=== PATIENT | male | born 1955 | race Caucasian/White ===

== ENCOUNTER 2024-12-31 15:38 | Inpatient (IN) ==
[2024-12-31] MEDS: fentaNYL 100 MCG/2 ML VIAL IV ONE (16:38)
[2024-12-31 16:56] LABS: INR 1.0 (0.9-1.1); Prothrombin Time 14.1 sec (11.9-14.5)
[2024-12-31 16:57] LABS: Basophils # (Auto) 0.05 K/mcL (0.00-0.30); Basophils % (Auto) 0.6 % (0.0-2.0); Eosinophils # (Auto) 0.94 K/mcL (0.00-0.70); Eosinophils % (Auto) 10.8 % (0.0-7.0); Hematocrit 33.8 % (40.1-51.0); Hemoglobin 11.1 g/dL (13.7-17.5); Lymphocytes # (Auto) 2.16 K/mcL (1.50-4.80); Lymphocytes % (Auto) 24.8 % (15.5-49.0); Mean Corpuscular HGB Conc 32.8 g/dL (31.0-36.0); Monocytes # (Auto) 1.08 K/mcL (0.10-0.90); Monocytes % (Auto) 12.4 % (1.0-12.0); Neutrophils % (Auto) 51.2 % (38.0-78.0); Platelet Count 216 K/mcL (140-440); RBC 3.39 M/mcL (4.63-6.08); WBC 8.7 K/mcL (4.5-11.0)
[2024-12-31 16:58] LABS: ALT/SGPT 18 U/L (<40); AST/SGOT 22 U/L (<40); Albumin 3.9 gm/dL (3.2-5.2); Albumin/Globulin Ratio 1.4 (1.0-2.3); Alkaline Phosphatase 52 U/L (39-117); Anion Gap 12.0 (8.0-16.0); Bilirubin,Total 0.3 mg/dL (0.1-1.0); Blood Urea Nitrogen 42 mg/dL (8-23); Calcium 8.7 mg/dL (8.6-10.4); Carbon Dioxide 26 mmol/L (22-30); Chloride 100 mmol/L (96-108); Globulin 2.8 gm/dL (2.2-3.7); Glucose 127 mg/dL (70-105); Potassium 4.2 mmol/L (3.3-5.1); Sodium 138 mmol/L (133-145)
[2024-12-31 17:06] LABS: Bilirubin,Urine NEGATIVE (Negative); Color,Urine YELLOW; Glucose,Urine (UA) 250 mg/dL (Negative); Ketones,Urine NEGATIVE (Negative); Leukocyte Esterase,Urine NEGATIVE /uL (Negative); PH,Urine 6.0 (5.0-9.0); Protein,Urine NEGATIVE (Negative); Specific Gravity,Urine <= 1.005 (1.000-1.035); Urobilinogen,Urine 0.2 mg/dL
[2024-12-31] MEDS: AZITHROMYCIN 250 MG TABLET PO ONE (17:09)
[2024-12-31] MEDS: cefTRIAXone 2 GM in DEXTROSE 5% IN WATER 50 ML IV ONE (17:09)
[2024-12-31] MEDS: 0.9 % SODIUM CHLORIDE 500 ML IV ONE (17:10)
[2024-12-31] MEDS: 0.9 % SODIUM CHLORIDE 250 ML IV SCH (18:12)
[2024-12-31] MEDS: NOREPINEPHRINE 250 ML IV SCH (18:12)
[2024-12-31] MEDS ORDERED: NICOTINE POLACRILEX 2 MG GUM CHEW/PARK PRN (21:21)
[2024-12-31] MEDS ORDERED: SENNOSIDES 1 TABLET PO PRN (21:21)
[2024-12-31] MEDS ORDERED: ONDANSETRON 4 MG/2 ML VIAL IV PRN (21:21)
[2024-12-31] MEDS ORDERED: ACETAMINOPHEN 325 MG TABLET PO PRN (21:21)
[2024-12-31] MEDS ORDERED: LACTULOSE 20 GM/30 ML ORAL.SOL PO PRN (21:21)
[2024-12-31] MEDS ORDERED: NICOTINE 7 MG PATCH TOPICAL PRN (21:21)
[2024-12-31] MEDS ORDERED: DEXTROSE 50% 50 ML VIAL IV PRN (21:21)
[2024-12-31] MEDS ORDERED: DEXTROSE 31 GM ORAL.SUSP PO PRN (21:21)
[2024-12-31] MEDS: 0.9 % SODIUM CHLORIDE 10 ML SYRINGE IV SCH (21:53)
[2024-12-31] MEDS: INSULIN LISPRO 1 UNIT/0.01 ML UNIT SQ SCH (21:53)
[2024-12-31] MEDS: FUROSEMIDE 100 MG/10 ML VIAL IV ONE (22:06)
[2024-12-31] MEDS: HEPARIN 5,000 UNIT/ML VIAL SQ SCH (22:08)
[2024-12-31] MEDS: INSULIN GLARGINE, HUMAN 1 UNIT/0.01 ML SQ SCH (22:09)
[2024-12-31] MEDS: FUROSEMIDE 250 MG in 0.9 % SODIUM CHLORIDE 225 ML IV SCH (22:11)
[2024-12-31 22:30] LABS: ALT/SGPT 17 U/L (<40); AST/SGOT 23 U/L (<40); Albumin 3.5 gm/dL (3.2-5.2); Albumin/Globulin Ratio 1.2 (1.0-2.3); Alkaline Phosphatase 48 U/L (39-117); Anion Gap 14.0 (8.0-16.0); Bilirubin,Direct 0.2 mg/dL (<0.3); Bilirubin,Total 0.4 mg/dL (0.1-1.0); Blood Urea Nitrogen 44 mg/dL (8-23); Calcium 8.5 mg/dL (8.6-10.4); Carbon Dioxide 21 mmol/L (22-30); Chloride 102 mmol/L (96-108); Globulin 3.0 gm/dL (2.2-3.7); Glucose 100 mg/dL (70-105); Phosphorous 5.6 mg/dL (2.5-4.5); Potassium 4.1 mmol/L (3.3-5.1); Sodium 137 mmol/L (133-145); Triglycerides 449 mg/dL (<150); Uric Acid 8.6 mg/dL (2.5-8.0)
[2024-12-31] MEDS: LIDOCAINE 4% TOP PATCH TOPICAL SCH (23:11)
[2025-01-01 05:55] LABS: Basophils # (Auto) 0.04 K/mcL (0.00-0.30); Basophils % (Auto) 0.3 % (0.0-2.0); Eosinophils # (Auto) 0.84 K/mcL (0.00-0.70); Eosinophils % (Auto) 7.3 % (0.0-7.0); Hematocrit 35.4 % (40.1-51.0); Hemoglobin 11.5 g/dL (13.7-17.5); Lymphocytes # (Auto) 2.07 K/mcL (1.50-4.80); Lymphocytes % (Auto) 17.9 % (15.5-49.0); Mean Corpuscular HGB Conc 32.5 g/dL (31.0-36.0); Monocytes # (Auto) 1.15 K/mcL (0.10-0.90); Monocytes % (Auto) 9.9 % (1.0-12.0); Neutrophils % (Auto) 64.5 % (38.0-78.0); Platelet Count 228 K/mcL (140-440); RBC 3.55 M/mcL (4.63-6.08); WBC 11.6 K/mcL (4.5-11.0)
[2025-01-01 06:29] LABS: Iron 30.0 ug/dL (61-157); TIBC Calculation 248.0 ug/dl (228-428); Transferrin % Saturation 12.0 % (20-50)
[2025-01-01 06:31] LABS: ALT/SGPT 18 U/L (<40); AST/SGOT 21 U/L (<40); Albumin 3.8 gm/dL (3.2-5.2); Albumin/Globulin Ratio 1.2 (1.0-2.3); Alkaline Phosphatase 52 U/L (39-117); Anion Gap 13.0 (8.0-16.0); Bilirubin,Direct < 0.2 mg/dL (0-0.3); Bilirubin,Total 0.3 mg/dL (0.1-1.0); Blood Urea Nitrogen 45 mg/dL (8-23); Calcium 8.7 mg/dL (8.6-10.4); Carbon Dioxide 25 mmol/L (22-30); Chloride 102 mmol/L (96-108); Globulin 3.1 gm/dL (2.2-3.7); Glucose 120 mg/dL (70-105); Phosphorous 4.6 mg/dL (2.5-4.5); Potassium 3.9 mmol/L (3.3-5.1); Sodium 140 mmol/L (133-145); Triglycerides 126 mg/dL (<150); Uric Acid 9.5 mg/dL (2.5-8.0)
[2025-01-01 06:33] LABS: Ferritin 287.0 ng/mL (30.0-400.0)
[2025-01-01] MEDS: MIDODRINE 5 MG TABLET PO SCH ×2 (08:42→09:13)
[2025-01-01] MEDS ORDERED: ATORVASTATIN 40 MG TABLET PO SCH (09:00)
[2025-01-01] MEDS: SPIRONOLACTONE 25 MG TABLET PO SCH (09:13)
[2025-01-01] MEDS: ASPIRIN 81 MG TAB.CHEW CHEWED SCH (09:13)
[2025-01-01] MEDS: EZETIMIBE 10 MG TABLET PO SCH (09:13)
[2025-01-01] MEDS: ATORVASTATIN 40 MG TABLET PO SCH (09:13)
[2025-01-01] MEDS ORDERED: LIDOCAINE 4% TOP PATCH TOPICAL SCH (21:00)
[2025-01-02 06:37] LABS: Basophils # (Auto) 0.05 K/mcL (0.00-0.30); Basophils % (Auto) 0.4 % (0.0-2.0); Eosinophils # (Auto) 0.92 K/mcL (0.00-0.70); Eosinophils % (Auto) 7.8 % (0.0-7.0); Hematocrit 37.1 % (40.1-51.0); Hemoglobin 12.1 g/dL (13.7-17.5); Lymphocytes # (Auto) 2.65 K/mcL (1.50-4.80); Lymphocytes % (Auto) 22.6 % (15.5-49.0); Mean Corpuscular HGB Conc 32.6 g/dL (31.0-36.0); Monocytes # (Auto) 1.27 K/mcL (0.10-0.90); Monocytes % (Auto) 10.8 % (1.0-12.0); Neutrophils % (Auto) 58.2 % (38.0-78.0); Platelet Count 249 K/mcL (140-440); RBC 3.78 M/mcL (4.63-6.08); WBC 11.7 K/mcL (4.5-11.0)
[2025-01-02 06:45] LABS: ALT/SGPT 21 U/L (<40); AST/SGOT 21 U/L (<40); Albumin 4.2 gm/dL (3.2-5.2); Albumin/Globulin Ratio 1.2 (1.0-2.3); Alkaline Phosphatase 56 U/L (39-117); Anion Gap 13.0 (8.0-16.0); Bilirubin,Direct 0.2 mg/dL (<0.3); Bilirubin,Total 0.4 mg/dL (0.1-1.0); Blood Urea Nitrogen 42 mg/dL (8-23); Calcium 9.1 mg/dL (8.6-10.4); Carbon Dioxide 27 mmol/L (22-30); Chloride 101 mmol/L (96-108); Globulin 3.4 gm/dL (2.2-3.7); Glucose 143 mg/dL (70-105); Phosphorous 3.8 mg/dL (2.5-4.5); Potassium 3.7 mmol/L (3.3-5.1); Sodium 141 mmol/L (133-145); Triglycerides 132 mg/dL (<150); Uric Acid 10.3 mg/dL (2.5-8.0)
[2025-01-02] MEDS: SPIRONOLACTONE 25 MG TABLET PO SCH (08:57)
[2025-01-02] MEDS: FUROSEMIDE 40 MG/4 ML VIAL IV SCH (14:34)
[2025-01-02 16:14] LABS: RBC Morphology NORMAL (Normal)
[2025-01-02] MEDS: CARVEDILOL 12.5 MG TABLET PO SCH (17:07)
[2025-01-02] MEDS: MELATONIN 3 MG TABLET PO SCH (19:18)
[2025-01-03 07:50] LABS: ALT/SGPT 18 U/L (<40); AST/SGOT 19 U/L (<40); Albumin 3.7 gm/dL (3.2-5.2); Albumin/Globulin Ratio 1.2 (1.0-2.3); Alkaline Phosphatase 52 U/L (39-117); Anion Gap 9.0 (8.0-16.0); Bilirubin,Direct < 0.2 mg/dL (0-0.3); Bilirubin,Total 0.3 mg/dL (0.1-1.0); Blood Urea Nitrogen 30 mg/dL (8-23); Calcium 8.9 mg/dL (8.6-10.4); Carbon Dioxide 30 mmol/L (22-30); Chloride 103 mmol/L (96-108); Globulin 3.1 gm/dL (2.2-3.7); Glucose 101 mg/dL (70-105); Phosphorous 3.8 mg/dL (2.5-4.5); Potassium 3.8 mmol/L (3.3-5.1); Sodium 142 mmol/L (133-145); Triglycerides 128 mg/dL (<150); Uric Acid 10.0 mg/dL (2.5-8.0)
[2025-01-03 08:03] LABS: Basophils # (Auto) 0.05 K/mcL (0.00-0.30); Basophils % (Auto) 0.5 % (0.0-2.0); Eosinophils # (Auto) 0.86 K/mcL (0.00-0.70); Eosinophils % (Auto) 8.7 % (0.0-7.0); Hematocrit 35.5 % (40.1-51.0); Hemoglobin 11.6 g/dL (13.7-17.5); Lymphocytes # (Auto) 2.56 K/mcL (1.50-4.80); Lymphocytes % (Auto) 25.9 % (15.5-49.0); Mean Corpuscular HGB Conc 32.7 g/dL (31.0-36.0); Monocytes # (Auto) 1.17 K/mcL (0.10-0.90); Monocytes % (Auto) 11.9 % (1.0-12.0); Neutrophils % (Auto) 52.9 % (38.0-78.0); Platelet Count 219 K/mcL (140-440); RBC 3.60 M/mcL (4.63-6.08); WBC 9.9 K/mcL (4.5-11.0)
[2025-01-03 12:06] VITALS: TEMP 97.5; O2SAT 98
[2025-01-03] MEDS: FUROSEMIDE 40 MG/4 ML VIAL IV SCH ×2 (12:30→16:00)
== END 2025-01-03 15:20 | disposition home or self-care (01) ==
LOC: ED 15:38 → ICU 21:20
PROVIDERS: ADMIT Internal Medicine; ATTEND Internal Medicine